=== PATIENT | male | born 1970 | race Caucasian/White ===

== ENCOUNTER → 2016-11-27 | Day surgery (SDC) | payer BC ==
[~2016-11-27] MED LIST: ALLEGRA PO; ASPIRIN81 M2 PO; BAYER ASPIRIN325 M1 PO; FISH OIL 1,0001 EAC1 PO; HYDROCODON-ACE1 EAC4 PO; HYDROCODON-ACE1 EAC5 PO; LIPITOR20 MG PO; LIPITOR40 MG PO; METANX CAPSULE1 EACH PO; METANX TABLET1 TA1 PO; METOPROLOL TAR25 MG PO; MULTIPLE VITAMI1 T11 PO; NEXIUM PO; PLAVIX PO; VITAMIN D-32000 UNIT PO; ZANTAC150 M1 PO
--- NOTE | ~2016-11-27 | CR84 ---
[facility] A Service of [facility] RADIOLOGY TEXT RESULTS PATIENT: BOZENA PRINCE LOCATION: [facility] : 72 UNIT #: [id number] AGE: [address]: Kang Bill MD SEX: M ORDER DR: [id number] [id number] [facility]. [place], [place] [address] [id number] O MR#: [id number] Acc #: [id number] NAME: BOZENA PRINCE : 1970 SEX: M STUDY DATE/TIME: 11/27/2016 8:47 UNIT: [facility] ROOM: STUDY DESCRIPTION: CR ERCP Biliary and Pancr SI Attending Physician: Kang Bill M.D. Ordering Physician: Kang Bill M.D. Primary Care Physician: Lizzy Gan A.P.R.N. MEDICAL IMAGING REPORT This report is preliminary unless electronic signature is present EXAM ERCP with fluoroscopy. DATE 11/27/2016 HISTORY Common bile duct dilation and right upper quadrant abdominal pain. COMPARISON Right upper quadrant abdominal ultrasound 10/18/2014. CT abdomen and pelvis without contrast 10/17/2011. There is no more recent abdominal imaging at this institution for comparison. FINDINGS 11 fluoroscopic images were obtained during ERCP procedure performed by Dr. Bill. Fluoroscopy time 2 minutes 5 seconds was recorded by the technologist. Contrast was injected in the pancreatic duct which demonstrates normal contour, without stricture or suspicious filling defect. Contrast was injected into the common bile duct. On images 6 and 7, there is a round filling defect within the mid CBD suggesting retained stone. There is very mild fusiform dilation of the common bile duct, but no focal stricture is seen. Intrahepatic bile ducts appear upper limits of normal caliber. Cystic duct is patent with opacification of the gallbladder. Final procedure image demonstrates single CBD stent in satisfactory position. Please refer to the endoscopist report for additional findings and recommendations. Dictated by... [facility] A Service [facility] RADIOLOGY TEXT RESULTS PATIENT: BOZENA PRINCE LOCATION: [facility] : 72 UNIT #: [id number] AGE: [address]: Kang Bill MD SEX: M ORDER DR: Anita Terrell M.D. THIS IS AN ELECTRONICALLY VERIFIED REPORT Anita Terrell M.D. at 11/28/2016 9:40 AM JANICE/yesika TD: 11/27/2016 14:02 JOB #: [id number] MEDICAL IMAGING REPORT Page 1 of 1 COPY
--- NOTE | ~2016-11-27 | OR ---
Unit #: [id number] #: [id number] Patient: BOZENA PRINCE [id number] [address] [place], [place] [address] [id number] O MR#: [id number] NAME: BOZENA PRINCE ROOM: Date of Procedure: 11/27/2016 Admission Date: 11/27/2016 Surgeon: Kang Bill M.D. : 1970 Attending Physician: Kang Bill M.D. Primary Care Physician: Lizzy Gan A.P.R.N. OPERATIVE REPORT PROCEDURES PERFORMED Esophagogastroduodenoscopy with biopsy and endoscopic retrograde cholangiopancreatography with stenting. INDICATIONS FOR PROCEDURE A 46-year-old gentleman with significant right upper quadrant pain, dilated common bile duct with a normal gallbladder, undergoing evaluation with upper endoscopy and ERCP. MEDICATIONS Monitored anesthesia. POSTOPERATIVE FINDINGS 1. EGD exam shows evidence of normal esophagus. 2. Mild gastritis. Biopsies taken. 3. Normal duodenum and distal duodenum. 4. ERCP shows minimal dilation of the pancreatic duct to 5 to 6 mm. 5. CBD was significantly dilated up to 10 to 11 mm. There was a radiopaque filling defect and the common bile duct seen in about mid level. Gallbladder was filling nicely. 6. The patient became very agitated despite MAC anesthesia. I was unable to do a sphincterotomy and balloon extraction at this point and placed a 7 x 7 CBD stent to ensure drainage at this time. PLAN We will need a repeat ERCP under general anesthesia. DESCRIPTION OF PROCEDURE The patient was explained of the procedure, risks, and benefits along with the risks and benefits of anesthesia. He was brought to the endoscopy room. Propofol anesthesia was given. Bite block was placed. The scope was passed down the mouth into the esophagus, stomach, duodenum, and distal duodenum. Biopsies taken. Gently, the scope was pulled out. He tolerated this part very well. At this time, we used a side-viewing ERCP scope which was passed down the mouth into the esophagus. Ampulla was visualized, it was normal in appearance. Pancreatic duct was injected first. Findings as described. CBD was then injected. There was significantly tight ampulla initially. Findings of cholangiography has been described above. The patient at this point became very agitated despite the anesthesia. 7 x 7 CBD stent was Unit #: [id number] #: [id number] Patient: BOZENA PRINCE placed across the common bile duct under fluoroscopic guidance. No attempt was made to perform sphincterotomy or balloon extractions because of the patient's agitation. Gently, the scope was pulled out. He tolerated it well. No major complications were seen. Dictated by... Woody Corcoran/soy TD: 11/27/2016 23:09 JOB #: [id number] OPERATIVE REPORT Page 1 of 1 X Kang Bill MD X PROCEDURE OPERATIVE NOTE
== END | disposition home or self-care (01) ==
LOC: COPS 06:31
DX: K29.50 Unspecified chronic gastritis without bleeding (principal); K83.8 Other specified diseases of biliary tract; K21.9 Gastro-esophageal reflux disease without esophagitis; Z87.891 Personal history of nicotine dependence; Z88.0 Allergy status to penicillin; Z88.6 Allergy status to analgesic agent; Z79.82 Long term (current) use of aspirin; Z79.899 Other long term (current) drug therapy; Z98.890 Other specified postprocedural states
CPT/HCPCS: 74330; 88305; 88312; J1610; J2250; J3010

== ENCOUNTER → 2016-12-05 | Outpatient (CLI) | payer BC ==
[2016-12-05 16:30] LABS: HEMATOCRIT 45.1 % (38.0-50.0); MEAN CELL VOLUME 88.3 FL (83-96); MEAN CORPUSCULAR HEMOGLOBIN 29.3 PG (28-34); MEAN CORPUSCULAR HGB CONC 33.2 g/dL (30-36); MEAN PLATELET VOLUME 7.4 FL (6.5-11.5); RED BLOOD COUNT 5.1 X10e (3.90-5.60); RED CELL DISTRIBUTION WIDTH 13.7 % (11.0-15.5); WHITE BLOOD COUNT 8.3 X10e3 (4.0-10.5)
[2016-12-05 16:54] LABS: ALBUMIN SERUM 4.6 g/dL (3.5-5.0); BILIRUBIN,TOTAL 0.3 mg/dL (0.2-2.0); BUN/CREATININE RATIO 17.77; CALCIUM SERUM 9.3 mg/dL (8.4-10.2); CREATININE SERUM 0.9 mg/dL (0.6-1.4); GLOM FILT RATE Estimated 102.8 mL/min (>60); POTASSIUM 4.2 mmol/L (3.5-5.1); PROTEIN TOTAL SERUM 7.6 g/dL (6.0-8.3)
== END | disposition home or self-care (01) ==
LOC: CLAB 16:11
PROVIDERS: Internal Medicine
DX: K83.8 Other specified diseases of biliary tract (principal)
CPT/HCPCS: 36415; 80053; 82150; 83690; 85027

== ENCOUNTER → 2017-01-31 | Day surgery (SDC) | payer BC ==
--- NOTE | ~2017-01-31 | OR ---
Unit #: [id number] #: [id number] Patient: BOZENA PRINCE [id number] [address] [place], [place] [address] [id number] O MR#: [id number] NAME: BOZENA PRINCE ROOM: Date of Procedure: 01/31/2017 Admission Date: 01/31/2017 Surgeon: Kang Bill M.D. : 1970 Attending Physician: Kang Bill M.D. Referring Physician: Kang Bill M.D. Primary Care Physician: Lizzy Gan A.P.R.N. OPERATIVE REPORT PROCEDURE PERFORMED Endoscopic retrograde cholangiopancreatography. INDICATIONS FOR PROCEDURE The patient recently had an ERCP, which was stopped because of him getting agitated and was found to have a CBD dilation as well as stone. The stent was placed at that time. He is undergoing ERCP for removal of stent as well as re-exploration of bile duct for that stone and any other abnormalities. MEDICATIONS General anesthesia. POSTOPERATIVE FINDINGS 1. No stent was seen at this time, it must have fallen off in between sometime. 2. Bile duct was significantly dilated. Maximum diameter of about 12 mm. No clear filling defects were seen. I swept the bile duct several times with a balloon. No stones or sludge was extracted. There was good drainage of bile at this time. 3. PD was injected minimally, was normal in appearance. PLAN The patient has been asymptomatic since last ERCP. We will continue to follow for any new symptoms or lab abnormalities. DESCRIPTION OF PROCEDURE The patient was explained of the procedure, risks, and benefits along with risks and benefits of anesthesia. He was brought to the endoscopy room. General anesthesia was given. He was laid in the prone position. ERCP side-viewing scope was passed down the mouth into the esophagus, stomach, duodenum, and distal duodenum. Ampulla was visualized. No stent was seen extending out of the ampulla after injecting the dye. No stent was seen inside the duct at all. No other filling defects were seen either. At this point, I used a balloon to sweet the duct multiple times. No stones or sludge were extracted. The entire duct was minimally injected, was normal in appearance. The scope was then carefully withdrawn. Stomach was decompressed. He tolerated it well. No major complications were seen. Dictated by... Unit #: [id number] #: [id number] Patient: BOZENA PRINCE M.D. SKJ/soy TD: 01/31/2017 15:47 JOB #: [id number] OPERATIVE REPORT Page 1 of 1 X Kang Bill MD X PROCEDURE OPERATIVE NOTE
--- NOTE | ~2017-01-31 | CR84 ---
[facility] A Service of [facility] & [facility] RADIOLOGY TEXT RESULTS PATIENT: BOZENA PRINCE LOCATION: [facility] : 72 UNIT #: [id number] AGE: [address]: Kang Bill MD SEX: M ORDER DR: [id number] [facility] [address] [facility]. [place], [place] [address] [id number] O MR#: [id number] Acc #: [id number] NAME: BOZENA PRINCE : 1970 SEX: M STUDY DATE/TIME: 01/31/2017 9:42 UNIT: [facility] ROOM: STUDY DESCRIPTION: CR ERCP Biliary and Pancr SI Attending Physician: Kang Bill M.D. Referring Physician: Kang Bill M.D. Ordering Physician: Kang Bill M.D. Primary Care Physician: Lizzy Gan A.P.R.N. MEDICAL IMAGING REPORT This report is preliminary unless electronic signature is present EXAM ERCP INDICATION Choledocholithiasis. Common bile duct dilatation. FINDINGS Ten fluoroscopic images from the endoscopy suite were submitted for interpretation. Patient was noted to have dilatation of the common bile duct. Cystic duct is patent with filling of the gallbladder. Intrahepatic biliary tree appeared unremarkable. Balloon sweep was performed. No stent was deployed. Total fluoroscopy time was 1 minute and 45 seconds. IMPRESSION ERCP findings as noted above. Please see Dr. Bill's report for a full description of procedure and findings. Dictated by... Abril Daily M.D. THIS IS AN ELECTRONICALLY VERIFIED REPORT Abril Daily M.D. at 02/03/2017 1:05 PM SCARLETT/paz TD: 02/02/2017 16:39 JOB #: [id number] MEDICAL IMAGING REPORT Page 1 of 1 COPY
--- NOTE | ~2017-01-31 | CR7 ---
[facility] A Service of [facility] RADIOLOGY TEXT RESULTS PATIENT: BOZENA PRINCE LOCATION: [facility] : 72 UNIT #: [id number] AGE: [address]: Kang Bill MD SEX: M ORDER DR: [id number] [id number] [facility]. [place], [place] [address] [id number] O MR#: [id number] Acc #: [id number] NAME: BOZENA PRINCE : 1970 SEX: M STUDY DATE/TIME: 01/31/2017 UNIT: [facility] ROOM: STUDY DESCRIPTION: CR Abdomen Single AP View Attending Physician: Kang Bill M.D. Referring Physician: Kang Bill M.D. Ordering Physician: Kang Bill M.D. Primary Care Physician: Lizzy Gan A.P.R.N. MEDICAL IMAGING REPORT This report is preliminary unless electronic signature is present EXAM Abdomen 1-view 01/31/2017 1221 hours HISTORY Patient complains of upper abdominal pain following ERCP today. COMPARISON ERCP images of 02/08/2017. CT abdomen 11/29/2016. FINDINGS Supine views of the abdomen and pelvis demonstrate a contrast opacified, mildly distended gallbladder. There is some oral contrast material in the fundus of the stomach and in the small bowel. There is slightly increased amount of gas in the small bowel without distension. No extravasation of contrast is seen. IMPRESSION There is a contrast opacified, distended gallbladder. There is some contrast material within the fundus of the stomach and in the small bowel. There is increased gas in the small bowel without significant distension of the small bowel or colon. Dictated by... Kendy Jennings M.D. THIS IS AN ELECTRONICALLY VERIFIED REPORT Kendy Jennings M.D. at 02/01/2017 8:53 AM OSMAN/tra TD: 01/31/2017 18:35 JOB #: [id number] [facility] A Service of [facility] & [facility] RADIOLOGY TEXT RESULTS PATIENT: BOZENA PRINCE LOCATION: [facility] : 72 UNIT #: [id number] AGE: [address]: Kang Bill MD SEX: M ORDER DR: MEDICAL IMAGING REPORT Page 1 of 1 COPY
== END | disposition home or self-care (01) ==
LOC: COPS 08:10
DX: K82.8 Other specified diseases of gallbladder (principal); K80.50 Calculus of bile duct without cholangitis or cholecystitis without obstruction; K21.9 Gastro-esophageal reflux disease without esophagitis; Z88.0 Allergy status to penicillin; Z79.899 Other long term (current) drug therapy; Z87.891 Personal history of nicotine dependence
CPT/HCPCS: 74000; 74330; J0330; J1610; J2250; J3010